=== PATIENT | female | born 1955 | race Caucasian/White ===

== ENCOUNTER → 2020-09-19 13:06 | Outpatient (CLI) | payer MEDICAID, SELFPAY ==
[2015-10-22 12:32] VITALS: BMI 28.9
--- NOTE | 2020-09-19 13:12 | RAD_ITS ---
STUDY: X-RAY - LUMBAR SPINE REASON FOR EXAM: Female, 65 years old. LUMBAR RADICLOPATHY WITH NUMBNESS AND TINGLING IN BOTH LEGS AND FEET. FELL ABOUT 1 WEEK AGO. TECHNIQUE: 5 view(s) of the lumbar spine were obtained. COMPARISON: None FINDINGS: Normal lumbar lordosis. There is a dextroscoliosis of the lumbar spine. Degenerative anterolisthesis of L3-L4 due to facet arthropathy. Multilevel facet arthropathy demonstrated. There is diffuse demineralization with multi-level endplate spondylosis. There is multi-level degenerative disc disease with multi-level disc space narrowing, most conspicuous at L3-L4, L4-L5 and L5-S1. There is no demonstrated fracture. There is no demonstrated spondylolysis of the pars interarticulares. The soft tissue structures are unremarkable. RAD/L/S Spine Min 4 Views IMPRESSION: Degenerative changes of the spine, as detailed above. Electronically Signed: Mark Hamlin MD ([facility]) at 15:07 EST , Service support ,
--- NOTE | 2020-09-19 13:22 | RAD_ITS ---
STUDY: X-RAY - CERVICAL SPINE REASON FOR EXAM: Female, 65 years old. CERVICAL RADICLOPATHY WITH NUMBNESS AND TINGLING IN BOTH LEGS AND FEET. FELL ABOUT 1 WEEK AGO. TECHNIQUE: 5 view(s) of the cervical spine were obtained. COMPARISON: None FINDINGS: Normal anterior atlantoaxial articulation. Normal odontoid process. There is straightening of the normal cervical lordosis. There is multi-level endplate spondylosis. There is disc space narrowing at C5-C6 and C6-C7. 4.5 mm of anterolisthesis of C4-C5 due to facet arthropathy. There is facet arthropathy at multiple levels with bilateral foraminal narrowing at C3-C4, C4-C5, C5-C6, C6-C7 There is atherosclerosis of the right carotid artery. RAD/Cerv Spine 4 or 5 Views IMPRESSION: Multilevel degenerative disc disease and facet arthropathy with foraminal stenosis, as above. Facet arthropathy causing degenerative anterolisthesis at C4-C5. Electronically Signed: Mark Hamlin MD ([facility]) at 15:10 EST , Service support ,
== END ==
PROVIDERS: PCP Family Medicine; Referring Provider Chiropractor; Visit Provider Chiropractor
DX: M54.12 Radiculopathy, cervical region (principal); M54.16 Radiculopathy, lumbar region
CPT/HCPCS: 72050; 72110